=== PATIENT | female | born 1950 | race Caucasian/White ===

== ENCOUNTER → 2020-06-18 10:24 | Outpatient (CLI) | payer OTHER, SELFPAY ==
--- NOTE | ~2020-06-18 | MM_ITS ---
EXAMINATION: MM screening [facility] BI w laquita HISTORY: Screening mammogram TECHNIQUE: Craniocaudal and mediolateral oblique 3-D tomosynthesis images were obtained and synthetic 2-D images were generated. CAD analysis was submitted and interpreted. COMPARISON: 04/12/2019, 11/19/2017, 08/20/2016 bilateral digital screening mammogram examinations BREAST PARENCHYMAL COMPOSITION: There are scattered areas of fibroglandular density. FINDINGS: There is prominent focal architectural distortion in the outer mid left breast at mid depth . This is best demonstrated on craniocaudal Tomosynthesis images 15-40. Diagnostic left mammogram and left breast ultrasound examination are recommended. No suspicious mass or architectural distortion or significant new or developing density of either stacy ast is noted otherwise. There are occasional benign right breast calcifications. IMPRESSION: 1. Suspicious focal architectural distortion in the outer mid left breast 2. Diagnostic left mammogram and left breast ultrasound examination are recommended Reviewed, dictated and finalized at location A. 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 Suspicious focal architectural distortion in the outer mid left breast 2. Diagnostic left mammogram and left breast ultrasound examination are recomme nded
== END ==
PROVIDERS: PCP Emergency Medicine; Visit Provider Emergency Medicine
DX: Z12.31 Encounter for screening mammogram for malignant neoplasm of breast (principal); R92.8 Other abnormal and inconclusive findings on diagnostic imaging of breast
CPT/HCPCS: 77063; 77067

== ENCOUNTER → 2020-07-11 08:05 | Outpatient (CLI) | payer OTHER, SELFPAY ==
--- NOTE | ~2020-07-11 | MMUS_ITS ---
EXAMINATION: MM diagnostic mammo unilat LT, US breast LT limited HISTORY: Possible left breast architectural distortion on screening mammogram TECHNIQUE: Additional 3-D tomosynthesis images of the left breast were performed and synthetic 2-D im ages were generated. CAD analysis was submitted and interpreted. High resolution limited left breast ultrasound was performed. COMPARISON: 06/18/2020, 04/12/2019, 11/12/1717, 08/20/2016 FINDINGS: MAMMOGRAPHIC FINDINGS: There is a return to baseline fibroglandular appearance with spot compression of the left breast. No suspicious mass, calcification, or architectural distortion are identified. ULTRASOUND: There is no evidence of focal abnormal solid or cystic lesion in the vicinity of the mammographic fin ding in question. IMPRESSION: 1. No mammographic or sonographic evidence of malignancy. 2. Recommend routine screening mammography in one year. BI-RADS Category 1: Negative Reviewed, dictated and finalized at location A. CTOR OF [employer]ETING IMPRESSION: 1. No mammographic or sonographic evidence of malignancy. 2. Recommend routine screening mammography in one year. BI-RADS Category 1: Negative
== END ==
PROVIDERS: PCP Emergency Medicine; Visit Provider Emergency Medicine
DX: N64.89 Other specified disorders of breast (principal)
CPT/HCPCS: 76642; 77065

== ENCOUNTER 2021-05-20 10:36 | Emergency (ER) | payer OTHER, SELFPAY ==
[2021-05-20 10:47] VITALS: BP 153/89; PULSE 98; RESP 16; TEMP 36.4; O2SAT 100
--- NOTE | 2021-05-20 10:50 | ECG_ITS ---
Measurements Intervals [place] Rate: 111 P: 43 MT: 157 QRS: 4 QRSD: 82 T: 10 QT: 320 QTc: 436 Interpretive Statements SINUS TACHYCARDIA BASELINE ARTIFACT- III, AVR, AVL, AVF ABNORMAL ECG Electronically Signed On 05-20-2021 15:36:07 CDT by Jay Umanzor D.O.
[2021-05-20 10:53] VITALS: PULSE 111; RESP 17; O2SAT 100
[2021-05-20 11:00] VITALS: PULSE 92; RESP 18; O2SAT 100
[2021-05-20 11:01] VITALS: BP 173/83; PULSE 102; RESP 22; O2SAT 100
--- NOTE | 2021-05-20 11:01 | ED.RECABL ---
HPI - Recheck/Abnormal Lab/Rx General Chief Complaint: Recheck/Abnormal Lab/Rx Stated Complaint: HIGH BP Time Seen by Provider: 05/20/21 10:40 Source: patient Mode of arrival: ambulatory Limitations: no limitations History of Present Illness HPI narrative: This is a 71 year old female that presents to the ER for high blood pressure. She was at her primary's office for 6-month checkup. Reports her blood pressure was 200 systolic. Recheck was 230 systolic. She was sent to the ED for further evaluation. She does not have history of hypertension, she is not on any medications for her blood pressure. She denies any symptoms currently. Denies headache, chest pain, or shortness of breath. Related Data Home Medications Medication Instructions Recorded Confirmed cholecalciferol (vitamin D3) 50 2,000 unit PO DAILY 08/21/19 05/20/21 mcg (2,000 unit) capsule Allergies Allergy/AdvReac Type Severity Reaction Status Date / Time ciprofloxacin Allergy Unknown unknown Verified 05/20/21 10:50 codeine Allergy Unknown unknown Verified 05/20/21 10:50 CIPROFLOXACIN HCL Allergy Intermediate RASH Uncoded 05/20/21 10:50 Review of Systems Review of Systems: CONSTITUTIONAL: Denies fever CARDIOVASCULAR: Denies chest pain, or edema. RESPIRATORY: Denies dyspnea. NEUROLOGIC: Denies headache, numbness, or weakness. All systems reviewed & are unremarkable except as noted in HPI and below PMFSH Past Medical History Medical History (Updated 05/20/21 @ 11:57 by Nayana Sanders PA-C) Anxiety Hyperlipidemia Family History Family History Sibling Family history of gallbladder disease Acute myocardial infarction Father Family history of malignant neoplasm of trachea, Onset Age: 65 Social History Social History Smoking status: Former smoker Alcohol intake: never Exam Narrative: GENERAL: Elderly, well-nourished, and in no acute distress. HEAD: Normocephalic, atraumatic. EYES: PERRLA and EOMI. ENT: Nares clear, no rhinorrhea or epistaxis. Mucous membranes moist. Oropharynx without tonsillar hypertrophy exudate or other lesions. Bilateral TMs pearly muse non-bulging NECK: Supple. No adenopathy or masses. No carotid bruits or JVD CHEST: Clear to auscultation. No respiratory distress. No wheezes rales or rhonchi HEART: Regular rate and rhythm. No murmur heard. Normal peripheral pulses. EXTREMITIES: Normal range of motion. No edema. SKIN: Warm, dry, no rash. NEURO: No focal deficits. Alert and oriented x3. PSYCH: Normal mood and affect Course Consultations Consultation #1: Spoke with Dr. Dale about patient and work-up who will follow up in clinic Date: 05/20/21 Time: 11:54 Vital Signs Vital signs: Vital Signs Temperature 97.6 F 05/20/21 10:47 Pulse Rate 98 05/20/21 10:47 Respiratory Rate 16 05/20/21 10:47 Blood Pressure 153/89 H 05/20/21 10:47 Pulse Oximetry 100 05/20/21 10:47 Temperature 97.6 F 05/20/21 10:47 Pulse Rate 98 05/20/21 11:16 Respiratory Rate 19 05/20/21 11:16 Blood Pressure 154/87 H 05/20/21 11:16 Pulse Oximetry 98 05/20/21 11:16 MDM - Recheck/Abnormal Lab/Rx MDM Narrative Medical decision making narrative: Patient presents the emergency department for high blood pressure. Reportedly was in the 200s at her primary office today. Is asymptomatic while in the ED. Blood pressure has been 150s/70s-80s. CBC and metabolic panel without concerning findings. EKG without concerning changes. Patient and family updated on case findings. Spoke with Dr. Dale about patient work-up will follow-up in clinic. Patient is stable and felt appropriate for further outpatient evaluation. She was given warnings to return to the ER Lab Data Attestation: I reviewed the patient's lab results. Result diagrams: 05/20/21 11:12 05/20/21 11:12 Lab
[2021-05-20 11:16] VITALS: BP 154/87; PULSE 98; RESP 19; O2SAT 98
[2021-05-20 11:21] LABS: Basophils Absolute Auto 0.1 K/mm3 (0.0-0.1); Basophils Percent Auto 1.3 % (0.2-1.2); Eosinophils Absolute Auto 0.2 K/mm3 (0-0.3); Eosinophils Percent Auto 2.4 % (0-4.4); Hematocrit 43.3 % (37.0-47.0); Immature Granulocyte Absolute 0.01 K/mm3 (0.00-0.031); Immature Granulocyte Percent A 0.2 % (0-0.5); Lymphocytes Absolute Auto 1.74 K/mm3 (0.9-3.2); Lymphocytes Percent Auto 27.4 % (18.3-44.2); Mean Corpuscular HGB Conc 32.3 g/dl (32-36); Mean Corpuscular Hemoglobin 31.3 pg (26-34); Mean Corpuscular Volume 96.9 fl (80-100); Mean Platelet Volume 9.2 fl (7.4-10.4); Monocytes Absolute Auto 0.5 K/mm3 (0.1-0.6); Neutrophils Absolute Auto 3.9 K/mm3 (1.3-6.7); Neutrophils Percent Auto 60.7 % (45.5-73.1); Platelet Count Result 266 k/mm3 (150-375); Red Blood Count 4.47 M/mm3 (4.2-5.4); Red Cell Distribution Width 11.9 % (11.5-14.5); White Blood Count 6.4 K/mm3 (4.5-10.0)
[2021-05-20 11:37] LABS: Anion Gap 13 mmol/L (8-16); Blood Urea Nitrogen 12 mg/dL (7-17); Calcium 10.2 mg/dL (8.4-10.2); Carbon Dioxide 25 mmol/L (22-30); Chloride 105 mmol/L (98-107); Estimated CRCL calculation 52 ml/min; Estimated Glomerular Filt Rate > 60; Glucose 111 mg/dL (65-110); Potassium 3.6 mmol/L (3.4-5.0); Sodium 143 mmol/L (137-145)
[2021-05-20 12:25] VITALS: BP 147/79; PULSE 84; RESP 20; O2SAT 98
== END 2021-05-20 12:27 | disposition home or self-care (01) ==
PROVIDERS: Physician Assistant; Emergency Provider Family Medicine; PCP Emergency Medicine
DX: I10 Essential (primary) hypertension (principal); E78.5 Hyperlipidemia, unspecified; Z87.891 Personal history of nicotine dependence; R00.0 Tachycardia, unspecified
CPT/HCPCS: 36415; 80048; 85025; 93005; 99283

== ENCOUNTER → 2022-01-15 14:12 | Outpatient (CLI) | payer OTHER, SELFPAY ==
--- NOTE | ~2022-01-15 | MM_ITS ---
EXAMINATION: MM screening [facility] BI w laquita HISTORY: Screening mammogram TECHNIQUE: Craniocaudal and mediolateral oblique 3-D tomosynthesis images were obtained and synthetic 2-D images were generated. CAD analysis was submitted and interpreted. COMPARISON: 07/11/2020 diagnostic left mammogram and limited left breast ultrasound 06/14/2020, 04/12/2019, 11/19/2017 bilateral screening mammogram examinations BREAST PARENCHYMAL COMPOSITION: There are scattered areas of fibroglandular density. FINDINGS: There is no evidence of suspicious mass, calcification, or architectural distortion to sugg est malignancy in either breast. There has been no suspicious interval change. IMPRESSION: 1. No mammographic evidence of malignancy. 2. Recommend routine screening mammography in one year. BI-RADS Category 1: Negative Reviewed, dictated and finalized at location A.
== END ==
PROVIDERS: PCP Emergency Medicine; Visit Provider Emergency Medicine
DX: Z12.31 Encounter for screening mammogram for malignant neoplasm of breast (principal)
CPT/HCPCS: 77063; 77067

== ENCOUNTER → 2022-11-26 10:16 | Outpatient (CLI) | payer OTHER, SELFPAY ==
--- NOTE | ~2022-11-26 | DEXA_ITS ---
Bone Density Report Name: NASH SALCIDO Age: 72 Sex: Female Ethnicity: White Date of : 1950 Indication: osteopenia; height loss; postmenopausal Referring Provider: FAHAD HENDERSON Study: Bone densitometry was performed. Exam Date: November 26, 2022 Accession number: [id number] Bone Density: Region BMD T-score Z-score Classification AP Spine (L1-L4) 1.129 0.7 3.1 Normal Femoral Neck (Left) 0.630 -2.0 0.0 Osteopenia Total Hip (Left) 0.710 -1.9 -0.2 Osteopenia Femoral Neck (Right) 0.664 -1.7 0.3 Osteopenia Total Hip (Right) 0.714 -1.9 -0.2 Osteopenia Total Hip Mean 0.712 -1.9 -0.2 Osteopenia World Health Organization criteria for BMD impression classify patients as: Normal (T-score at or above -1.0), Osteopenia (T-score between -1.0 and -2.5), or Osteoporosis (T-score at or below -2.5). 10-year Fracture Risk(1): Major Osteoporotic Fracture 13% Hip Fracture 2.8% Reported Risk Factors: [place] (), Neck BMD=0.630, BMI=25.9 (1) FRAX(R) Version 3.08. Fracture probability calculated for an untreated patient. Fracture probability may be lower if the patient has received treatment. Previous Exams: Region Exam Age BMD T-score BMD Change BMD Change Date g/cm2 vs Baseline vs Previous AP Spine(L1-L4) 11/26/2022 72 1.129 0.7 0.115* 0.115* 07/23/2015 65 1.015 -0.3 Total Hip(Left) 11/26/2022 72 0.710 -1.9 -0.019 -0.030* 11/19/2017 67 0.740 -1.7 0.012 0.012 07/23/2015 65 0.728 -1.8 Total Hip(Right) 11/26/2022 72 0.714 -1.9 -0.002 -0.013 11/19/2017 67 0.727 -1.8 0.010 0.010 07/23/2015 65 0.716 -1.9 *Denotes significance at 95% confidence level, LSC for AP Spine = 0.022 g/cm2, LSC for Total Hip = 0.027 g/cm2 Clinical Information Provided by Patient: Has used the following medications: Vitamin D Patient maximum height was 67 Menopause Age: 44 No regular weight bearing exercise Drinks caffeinated beverages Onset of menses at age 15 Number of children 0 Impression: The patient has low bone mass, based on the Left Femoral Neck T-score. The patient has an estimated ten-year risk of hip fracture of 2.8% and an estimated ten-year risk of major fracture of 13%, based on the WHO FRAX algorithm. The BMD for the Total Hip(Left) decreased, changing by -0.030 since the last DXA exam. Discussion: BONE DENSITY IS LOW AT
== END ==
PROVIDERS: PCP Emergency Medicine; Visit Provider Emergency Medicine
DX: Z78.0 Asymptomatic menopausal state (principal); M85.852 Other specified disorders of bone density and structure, left thigh; M85.851 Other specified disorders of bone density and structure, right thigh
CPT/HCPCS: 77080

== ENCOUNTER → 2023-03-10 13:21 | Outpatient (CLI) | payer OTHER, SELFPAY ==
--- NOTE | ~2023-03-10 | MM_ITS ---
EXAMINATION: MM screening [facility] w laqu[place] HISTORY: Screening TECHNIQUE: Craniocaudal and mediolateral oblique 3-D tomosynthesis images were obtained and synthetic 2-D images were generated. CAD analysis was submitted and interpreted. COMPARISON: Comparison to multiple prior studies sequentially, with oldest reviewed study dated 08/20. BREAST PARENCHYMAL COMPOSITION: There are scattered areas of fibroglandular density. FINDINGS: There is no evidence of suspicious mass, calcification, or architectural distortion to sugg est malignancy in either breast. There has been no suspicious interval change. IMPRESSION: 1. No mammographic evidence of malignancy. 2. Recommend routine screening mammography in one year. BI-RADS Category 1: Negative Reviewed, dictated and finalized at location A.
== END ==
PROVIDERS: PCP Emergency Medicine; Visit Provider Emergency Medicine
DX: Z12.31 Encounter for screening mammogram for malignant neoplasm of breast (principal)
CPT/HCPCS: 77063; 77067

== ENCOUNTER 2024-12-01 13:13 | Outpatient (CLI) | payer OTHER, SELFPAY ==
--- NOTE | ~2024-12-01 | MM_ITS ---
EXAMINATION: MM screening soniya BI w laquita HISTORY: Screening TECHNIQUE: Craniocaudal and mediolateral oblique 3-D tomosynthesis images were obtained and synthetic 2-D images were generated. CAD analysis was submitted and interpreted. COMPARISON: Comparison to multiple prior studies sequentially, with oldest reviewed study dated 11/19. BREAST PARENCHYMAL COMPOSITION: Not dense: There are scattered areas of fibroglandular density. FINDINGS: There is no evidence of suspicious mass, calcification, or architectural distortion to sugg est malignancy in either breast. There has been no suspicious interval change. IMPRESSION: 1. No mammographic evidence of malignancy. 2. Recommend routine screening mammography in one year. BI-RADS Category 1: Negative Reviewed, dictated and finalized at location A.
== END 2024-12-01 13:14 | disposition home or self-care (01) ==
LOC: MICIMG 13:15
PROVIDERS: PCP Emergency Medicine; Visit Provider Emergency Medicine
DX: Z12.31 Encounter for screening mammogram for malignant neoplasm of breast (principal)
CPT/HCPCS: 77063; 77067

== ENCOUNTER 2025-01-15 07:47 | Outpatient (CLI) | payer OTHER, SELFPAY ==
--- NOTE | ~2025-01-15 | DEXA_ITS ---
Bone Density Report Name: NASH SALCIDO Age: 74 Sex: Female Ethnicity: White Date of : 1950 Indication: osteopenia; height loss; Referring Provider: FAHAD HENDERSON Study: Bone densitometry was performed. Exam Date: January 15, 2025 Accession number: [id number] Bone Density: Region BMD T-score Z-score Classification AP Spine(L1, L2, L3) 1.193 1.6 4.0 Normal Femoral Neck (Left) 0.600 -2.2 -0.1 Osteopenia Total Hip (Left) 0.710 -1.9 -0.1 Osteopenia Femoral Neck (Right) 0.648 -1.8 0.3 Osteopenia Total Hip (Right) 0.687 -2.1 -0.3 Osteopenia Total Hip Mean 0.699 -2.0 -0.2 Osteopenia World Health Organization criteria for BMD impression classify patients as: Normal (T-score at or above -1.0), Osteopenia (T-score between -1.0 and -2.5), or Osteoporosis (T-score at or below -2.5). 10-year Fracture Risk(1): Major Osteoporotic Fracture 14% Hip Fracture 4.0% Reported Risk Factors: [place] (), Neck BMD=0.600, BMI=25.5 (1) FRAX(R) Version 3.08. Fracture probability calculated for an untreated patient. Fracture probability may be lower if the patient has received treatment. Previous Exams: -- Region Exam Age BMD T-score BMD Change BMD Change Date g/cm2 vs Baseline vs Previous -- AP Spine (L1-L3) 01/15/2025 74 1.193 1.6 14.1%* 9.0%* 11/26/2022 72 1.094 0.7 4.7%* 4.7%* 07/23/2015 65 1.045 0.2 Total Hip(Left) 01/15/2025 74 0.710 -1.9 -2.5% 0.0% 11/26/2022 72 0.710 -1.9 -2.5% -4.1%* 11/19/2017 67 0.740 -1.7 1.6% 1.6% 07/23/2015 65 0.728 -1.8 Total Hip(Right) 01/15/2025 74 0.687 -2.1 -4.0%* -3.7% 11/26/2022 72 0.714 -1.9 -0.3% -1.8% 11/19/2017 67 0.727 -1.8 1.5% 1.5% 07/23/2015 65 0.716 -1.9 -- *Denotes significance at 95% confidence level, LSC for AP Spine = 0.022 g/cm2, LSC for Total Hip = 0.027 g/cm2 Rate of change results reflect vertebral levels common to all scans Clinical Information Provided by Patient: Has used the following medications: Vitamin D Patient maximum height was 66 Menopause Age: 44 Onset of menses at age 15 Impression: The patient has low bone mass, based on the Left Femoral Neck T-score. The patient has an estimated ten-year risk of hip fracture of 4% and an estimated ten-year risk of major fracture of 14%, based on the WHO FRAX algorithm. No significant bone loss was observed. Discussion: BONE DENSITY IS LOW AT ONE OR MORE SKELETAL SITES. THE PATIENT'S BMD AND CLINICAL RISK FACTORS CONTRIBUTE TO THIS PATIENT'S INCREASED RISK OF FRACTURE. This patient's lowest T-score is low at one or more skeletal sites. It meets the World Health Organization's (WHO) criteria for ?low bone mass? (T-score between -1.0 and -2.5). The patient's 10-year risk of hip fracture as calculated by FRAX exceeds the threshold where pharmacological therapy is recommended by the National Osteoporosis Foundation (NOF). However, all treatment decisions require clinical judgment and consideration of individual patient factors, including patient preferences, comorbidities, previous drug use, risk factors not captured in the FRAX model (e.g., frailty, falls, vitamin D deficiency, increased bone turnover, interval significant decline in bone density) and possible under or overestimation of fracture risk by FRAX. The patient should follow a healthful lifestyle (good nutrition with adequate calcium and vitamin D, and appropriate weight-bearing exercise). Follow-Up: Consider a repeat BMD and Vertebral Fracture Assessment (VFA) exam in 2 years or sooner if medically necessary, to reassess this patient's status. Reported by: MARINO on 01/15/2025 8:21:00 AM. Reviewed, dictated and finalized at location A.
== END 2025-01-15 07:48 | disposition home or self-care (01) ==
LOC: MICIMG 07:47
PROVIDERS: PCP Emergency Medicine; Visit Provider Emergency Medicine
DX: Z78.0 Asymptomatic menopausal state (principal); M85.852 Other specified disorders of bone density and structure, left thigh; M85.851 Other specified disorders of bone density and structure, right thigh
CPT/HCPCS: 77080